=== PATIENT | male | born 1945 | race Caucasian/White ===

== ENCOUNTER 2017-11-15 17:36 | Inpatient (IN) | payer OTHER ==
[~2017-11-15] VITALS: Ht 177.8 cm; Wt 93.1 kg
[2017-11-15] MEDS ORDERED: ASPIRIN 81 MG TABLET CHEW PO ONE (18:00)
[2017-11-15] MEDS ORDERED: ATOR40TA78 PO (18:11)
[2017-11-15] MEDS ORDERED: INSU100I28 SQ (18:11)
[2017-11-15] MEDS ORDERED: UBID100C24 PO (18:11)
[2017-11-15] MEDS ORDERED: ASCO10004 PO (18:11)
[2017-11-15] MEDS ORDERED: CHOL500045 PO (18:11)
[2017-11-15] MEDS ORDERED: OMEG1CAP23 PO (18:11)
[2017-11-15] MEDS ORDERED: VITA100C8 PO (18:11)
[2017-11-15] MEDS ORDERED: OMEP-110 PO (18:11)
[2017-11-15] MEDS ORDERED: RAMI10CA PO (18:11)
[2017-11-15] MEDS ORDERED: ASPI-515 PO (18:11)
[2017-11-15] MEDS ORDERED: ASPIRIN 81 MG TABLET CHEW ONE (18:22)
[2017-11-15 18:35] LABS: BASOPHILS # (AUTO) 0.02 x10^3/uL (0-0.1); BASOPHILS % (AUTO) 1 % (0-1); EOSINOPHILS # (AUTO) 0.04 x10^3/uL (0-0.4); EOSINOPHILS % (AUTO) 1 % (1-7); LYMPHOCYTES # (AUTO) 0.97 x10^3/uL (1-3.4); LYMPHOCYTES % (AUTO) 24 % (22-44); MD NO; MEAN CORPUSCULAR VOLUME 97.4 fL (81-97); MEAN PLATELET VOLUME 8.9 fL (7.4-10.4); MONOCYTES # (AUTO) 0.31 x10^3/uL (0.2-0.8); MONOCYTES % (AUTO) 8 % (2-9); NEUTROPHILS # (AUTO) 2.79 x10^3/uL (1.8-6.8); NEUTROPHILS % (AUTO) 68 % (42-75); PLATELET COUNT 119 x10^3/uL (130-400); RED BLOOD COUNT 4.79 x10^6/uL (4.38-5.82); RED CELL DISTRIBUTION WIDTH 13.2 % (9.4-14.8)
[2017-11-15 18:47] LABS: ALBUMIN 3.8 g/dL (3.4-5.0); ANION GAP 9 mmol/L (5-15); CALCIUM 8.3 mg/dL (8.5-10.1); CHLORIDE 106 mmol/L (98-107); CREATININE 1.19 mg/dL (0.7-1.3)
[2017-11-15] MEDS ORDERED: METOPROLOL TARTRATE 25 MG TABLET ONE ×2 (18:59→19:54)
[2017-11-15] MEDS ORDERED: METOPROLOL TARTRATE 50 MG TABLET PO ONE ×2 (19:00→20:00)
[2017-11-15] MEDS ORDERED: HEPARIN 25,000 UNITS/500ML PMX 500 ML ONE (19:21)
[2017-11-15] MEDS ORDERED: HEPARIN 5,000 UNITS/ML, 1ML ONE (19:21)
[2017-11-15] MEDS ORDERED: HEPARIN 5,000 UNITS/ML, 1ML IV PRN (19:30)
[2017-11-15] MEDS ORDERED: HEPARIN 5,000 UNITS/ML, 1ML IV ONE (19:30)
[2017-11-15] MEDS ORDERED: PLEASE ENTER HEIGHT AND WEIGHT MC SCH (19:30)
[2017-11-15] MEDS ORDERED: HEPARIN 25,000 UNITS/500ML PMX 500 ML IV PRN (19:30)
[2017-11-15] MEDS ORDERED: LISINOPRIL 10 MG TABLET PO ONE (21:30)
[2017-11-15 21:55] VITALS: BP 136/86
[2017-11-15] MEDS ORDERED: POLYETHYLENE GLYCOL 17 GM PACKET PO PRN (22:00)
[2017-11-15] MEDS ORDERED: ONDANSETRON 2MG/ML, 2ML IVPush PRN (22:00)
[2017-11-15] MEDS ORDERED: ACETAMINOPHEN 325 MG TABLET PO PRN (22:00)
[2017-11-15] MEDS ORDERED: morphine SULFATE 10 MG/ML, 1ML IVPush PRN (22:00)
[2017-11-15] MEDS: VITAMIN E 400 UNITS CAPSULE PO SCH (22:59)
[2017-11-15] MEDS: ATORVASTATIN 80 MG TABLET PO SCH (22:59)
[2017-11-16 01:24] VITALS: BP 117/75
[2017-11-16 05:16] LABS: CHLORIDE 109 mmol/L (98-107)
[2017-11-16 05:26] LABS: ANION GAP 10 mmol/L (5-15); CALCIUM 7.8 mg/dL (8.5-10.1); CHOL/HDL RATIO 4.9; CHOLESTEROL, TOTAL 182 mg/dL (140-239); CREATININE 1.05 mg/dL (0.7-1.3); HDL CHOL % 20 % (26-37); HDL CHOLESTEROL (DIRECT) 37 mg/dL (40-60); TRIGLYCERIDES 731 mg/dL (50-200)
[2017-11-16 06:38] VITALS: BP 127/82
[2017-11-16] MEDS: INSULIN LISPRO 100 UNITS/ML, PEN SQ-INSULIN SCH ×4 (07:00→20:07)
[2017-11-16] MEDS ORDERED: SODIUM CHLORIDE 0.9% 1,000 ML IV ONE (07:25)
[2017-11-16 07:48] VITALS: BP 137/88
[2017-11-16] MEDS: OMEPRAZOLE 20 MG CAPSULE.DR PO SCH (07:52)
[2017-11-16] MEDS: VITAMIN E 400 UNITS CAPSULE PO SCH (07:52)
[2017-11-16] MEDS: ASPIRIN 81 MG TABLET EC PO SCH (07:53)
[2017-11-16] MEDS: CHOLECALCIFEROL 1,000 UNIT TABLET PO SCH (07:53)
[2017-11-16] MEDS: OMEGA-3/FISH OIL CAPSULE PO SCH (07:53)
[2017-11-16] MEDS: ASCORBIC ACID 500 MG TABLET PO SCH ×3 (07:54→16:12)
[2017-11-16] MEDS: RAMIPRIL 10 MG CAPSULE PO SCH (07:54)
[2017-11-16] MEDS: CARVEDILOL 6.25 MG TABLET PO SCH ×2 (07:55→18:06)
[2017-11-16] MEDS: UBIDECARENONE 500 MG PO SCH (08:34)
[2017-11-16] MEDS ORDERED: INSULIN GLARGINE 100 UNITS/ML, PEN SQ-INSULIN SCH (09:00)
[2017-11-16] MEDS: SODIUM CHLORIDE 0.9% 1,000 ML IV SCH ×3 (09:59→22:23)
[2017-11-16] MEDS: INSULIN GLARGINE 100 UNITS/ML, PEN SQ-INSULIN SCH (10:37)
[2017-11-16 13:00] VITALS: BP 142/85
[2017-11-16] MEDS ORDERED: FENTANYL PF 100 MCG/2ML ONE (13:20)
[2017-11-16] MEDS ORDERED: BIVALIRUDIN 250 MG ONE (13:20)
[2017-11-16] MEDS ORDERED: MIDAZOLAM 1 MG/ML, 5ML ONE (13:20)
[2017-11-16] MEDS ORDERED: VERAPAMIL 2.5 MG/ML, 2ML ONE (13:20)
[2017-11-16] MEDS ORDERED: TICAGRELOR 90 MG TABLET ONE (13:20)
[2017-11-16] MEDS ORDERED: HEPARIN 1,000 UNITS/ML, 10ML ONE (13:20)
[2017-11-16 18:18] VITALS: BP 154/90
[2017-11-16] MEDS: ATORVASTATIN 80 MG TABLET PO SCH (19:57)
[2017-11-16] MEDS: HEPARIN 5,000 UNITS/ML, 1ML SQ SCH (22:25)
[2017-11-17 01:48] VITALS: BP 131/73
[2017-11-17 05:29] LABS: ANION GAP 9 mmol/L (5-15); CHLORIDE 109 mmol/L (98-107)
[2017-11-17 05:32] LABS: CALCIUM 7.8 mg/dL (8.5-10.1); CREATININE 1.02 mg/dL (0.7-1.3)
[2017-11-17 05:39] LABS: HEMOGLOBIN A1C 8.8 % (4.2-6.3)
[2017-11-17 06:32] VITALS: BP 149/92
[2017-11-17] MEDS: HEPARIN 5,000 UNITS/ML, 1ML SQ SCH (06:34)
[2017-11-17] MEDS: CARVEDILOL 6.25 MG TABLET PO SCH (06:35)
[2017-11-17 08:00] VITALS: BP 153/87
[2017-11-17] MEDS ORDERED: CLOPIDOGREL 75 MG TABLET ONE (08:11)
[2017-11-17] MEDS: INSULIN LISPRO 100 UNITS/ML, PEN SQ-INSULIN SCH ×2 (08:22→11:00)
[2017-11-17] MEDS: INSULIN GLARGINE 100 UNITS/ML, PEN SQ-INSULIN SCH (08:22)
[2017-11-17] MEDS: VITAMIN E 400 UNITS CAPSULE PO SCH (08:27)
[2017-11-17] MEDS: CHOLECALCIFEROL 1,000 UNIT TABLET PO SCH (08:27)
[2017-11-17] MEDS: RAMIPRIL 10 MG CAPSULE PO SCH (08:28)
[2017-11-17] MEDS: ASCORBIC ACID 500 MG TABLET PO SCH ×2 (08:29→11:00)
[2017-11-17] MEDS: OMEPRAZOLE 20 MG CAPSULE.DR PO SCH (08:29)
[2017-11-17] MEDS: ASPIRIN 81 MG TABLET EC PO SCH (08:29)
[2017-11-17] MEDS: SODIUM CHLORIDE 0.9% 1,000 ML IV SCH (08:30)
[2017-11-17] MEDS: OMEGA-3/FISH OIL CAPSULE PO SCH (08:45)
[2017-11-17] MEDS: UBIDECARENONE 500 MG PO SCH (09:00)
[2017-11-17] MEDS ORDERED: CLOPIDOGREL 75 MG TABLET PO SCH (09:00)
[2017-11-17] MEDS ORDERED: CARV6.2512 PO (10:49)
[2017-11-17] MEDS ORDERED: INSU100I11 SQ-INSULIN (10:49)
[2017-11-17] MEDS ORDERED: CLOP75TA PO (10:49)
[2017-11-17] MEDS ORDERED: CARVEDILOL 6.25 MG TABLET PO SCH (18:00)
[2017-11-23] MEDS ORDERED: CARV12.543 PO (13:46)
[2017-11-23] MEDS ORDERED: TICA90TA PO (13:46)
[2017-11-23] MEDS ORDERED: NITR0.4T SL (13:46)
== END 2017-11-17 12:17 | disposition home or self-care (01) | DRG 282 ==
LOC: ED 18:37 → EDIP 19:50 → 5SO 21:50 → DCLOUNGE 11-17 11:49
PROVIDERS: ADMIT Hospitalist; ATTEND Hospitalist
PROC: 4A023N7 Measurement of Cardiac Sampling and Pressure, Left Heart, Percutaneous Approach (ICD-10-PCS; principal; 2017-11-15)
PROC: 4A033BC Measurement of Arterial Pressure, Coronary, Percutaneous Approach (ICD-10-PCS; 2017-11-15)
PROC: B2151ZZ Fluoroscopy of Left Heart using Low Osmolar Contrast (ICD-10-PCS; 2017-11-15)
PROC: B2111ZZ Fluoroscopy of Multiple Coronary Arteries using Low Osmolar Contrast (ICD-10-PCS; 2017-11-15)
DX: I21.4 Non-ST elevation (NSTEMI) myocardial infarction (principal); D69.6 Thrombocytopenia, unspecified; E11.65 Type 2 diabetes mellitus with hyperglycemia; I10 Essential (primary) hypertension; I25.10 Atherosclerotic heart disease of native coronary artery without angina pectoris; E78.2 Mixed hyperlipidemia; Z79.4 Long term (current) use of insulin; Z79.82 Long term (current) use of aspirin; Z82.49 Family history of ischemic heart disease and other diseases of the circulatory system; Z87.891 Personal history of nicotine dependence
CPT/HCPCS: 36415; 71045; 71250; 80048; 80061; 82040; 82962; 83036; 83721; 83735; 83880; 84100; 84443; 84484; 85025; 85520; 93005; 93306; 93458; 93571; 96374; 99156; 99157; C1760; C1769; C1894; J0583; J1644; J2250; J3010; C1887; J1815; J7030; Q9967